=== PATIENT | female | born 1975 | race Caucasian/White ===

== ENCOUNTER 2020-01-17 19:37 | Emergency (ER) | payer OTHER ==
[~2020-01-17] VITALS: Ht 165.1 cm; Wt 63.5 kg
[2020-01-17 19:42] VITALS: BP 132/87
--- NOTE | 2020-01-17 19:46 | NUR ---
pt ambulated to bed 4, steady gait.
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
[2020-01-17] MEDS ORDERED: LORazepam 1 MG TAB PO ONE (19:55)
--- NOTE | 2020-01-17 20:31 | NUR ---
PT STATES SHE IS STARTING TO FEEL SOME RELIEF, BREATHING RATE HAS SLOWED DOWN TO 17 AFTER MED ADMINISTRATION. BUT HAS SOME PRESSURE IN THE CHEST. 0/10 PAIN. PT IS ON MONITOR VSS. WILL CONTINUE TO MONITOR.
[2020-01-17 21:15] VITALS: BP 119/69
--- NOTE | 2020-01-17 21:15 | NUR ---
Patient discharged with v/s stable. Written and verbal after care instructions given and explained. Patient alert, oriented and verbalized understanding of instructions. Wheel Chair Assisted to car. All questions addressed prior to discharge. ID band removed. Patient advised to follow up with PMD. Rx of ATARAX given. Patient educated on indication of medication including possible reaction and side effects. Opportunity to ask questions provided and answered.
== END 2020-01-17 21:15 | disposition home or self-care (01) ==
LOC: MED 19:37
DX: F41.9 Anxiety disorder, unspecified (principal); R06.4 Hyperventilation; R42 Dizziness and giddiness
CPT/HCPCS: 99283

== ENCOUNTER 2020-06-17 11:16 | Emergency (ER) | payer OTHER ==
[~2020-06-17] VITALS: Ht 165.1 cm; Wt 62.6 kg
[2020-06-17 11:20] VITALS: BP 110/81
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
--- NOTE | 2020-06-17 11:46 | NUR ---
Dr. Magana evaluating pt at bedside
[2020-06-17] MEDS ORDERED: LORazepam 2 MG/ML VIAL IM ONE (11:50)
--- NOTE | 2020-06-17 12:03 | NUR ---
ativan im administered. pt given permission to notify family of current condition
--- NOTE | 2020-06-17 12:06 | NUR ---
called pts abhishek and gave update
--- NOTE | 2020-06-17 12:31 | NUR ---
Patient discharged with v/s stable. Written and verbal after care instructions given and explained. Patient alert, oriented and verbalized understanding of instructions. Ambulatory with steady gait. All questions addressed prior to discharge. ID band removed. Patient advised to follow up with PMD. Rx of Xanax 05.mg given. Patient educated on indication of medication including possible reaction and side effects. Opportunity to ask questions provided and answered.
[2020-06-17 12:32] VITALS: BP 110/81
--- NOTE | 2020-06-17 12:38 | NUR ---
Attempted to call pt, no answer.
--- NOTE | 2020-06-17 12:40 | NUR ---
Called patients to inform that pt left her discharge paperwork at bedside
--- NOTE | 2020-06-17 13:10 | NUR ---
telephone consent from pt, ester luke, to release prescription to daughter kayy. no further questions. prescription of ativan prn given.
== END 2020-06-17 12:31 | disposition home or self-care (01) ==
LOC: MED 11:16
DX: F41.1 Generalized anxiety disorder (principal)
CPT/HCPCS: 96372; 99283; J2060